=== PATIENT | female | born 1985 | race Caucasian/White ===

== ENCOUNTER 2018-10-11 04:54 | Inpatient (IN) ==
[2018-10-11] MEDS ORDERED: SODIUM CHLORIDE 0.9% INJ SCH (05:45)
[2018-10-11] MEDS ORDERED: PITOCIN 30 UNITS/NS 30 UNIT/500 ML IV.SOLN IV SCH (05:45)
[2018-10-11] MEDS ORDERED: PEPCID PO PRN (05:45)
[2018-10-11] MEDS ORDERED: PEPCID PO ONE (05:45)
[2018-10-11] MEDS ORDERED: ZOFRAN IV PRN (05:45)
[2018-10-11] MEDS ORDERED: PEPCID IV PRN (05:45)
[2018-10-11] MEDS ORDERED: TYLENOL PO PRN (05:45)
[2018-10-11] MEDS ORDERED: REGLAN PO ONE (05:45)
[2018-10-11] MEDS ORDERED: LR 1,000 ML IV SCH (05:45)
[2018-10-11 05:50] LABS: URINE SOURCE VOIDED
[2018-10-11 06:02] LABS: BILIRUBIN URINE NEGATIVE (NEGATIVE); BLOOD URINE 2+ (NEGATIVE); CLARITY SL. CLOUDY (CLEAR); COLOR YELLOW; GLUCOSE URINE NEGATIVE (NEGATIVE); KETONE URINE NEGATIVE (NEGATIVE); LEUKOCYTES URINE TRACE (NEGATIVE); NITRITE URINE NEGATIVE (NEGATIVE); PH URINE 6.5; PROTEIN URINE 1+(30 mg/dL) mg/dL (NEGATIVE); UROBILINOGEN URINE NORMAL
[2018-10-11 06:25] LABS: HEMATOCRIT 33.9 % (37.0-47.0); HEMOGLOBIN 11.2 g/dL (12.0-16.0); RBC 4.13 XMIL (4.2-5.4); WBC 10.81 X1000 (4.8-10.8)
[2018-10-11 06:26] LABS: BASO# 0.01 X1000 (0.0-0.2); BASO% 0.1 % (0.0-0.8); EOS# 0.11 X1000 (0.0-0.7); IMM GRAN# 0.03 X1000 (0.0-0.04); IMM GRAN% 0.3 % (0.0-0.5); LYMPH# 2.17 X1000 (1.2-3.4); LYMPH% 20.1 % (20.5-51.1); MCH 27.1 PG (27-31); MCV 82.1 FL (81-99); MONO# 0.63 X1000 (0.11-0.59); MONO% 5.8 % (1.7-9.3); MPV 10.6 FL (7.4-10.4); NEUT# 7.86 X1000 (1.4-6.5); NEUT% 72.7 % (42.2-75.2); PLT 198 X1000 (130-400); RDW 14.9 % (11.5-14.5)
[2018-10-11] MEDS: STADOL IV PRN ×2 (06:36→09:12)
[2018-10-11 06:38] LABS: UR AMPHETAMINES QUAL NONE DETECTED (NONE DETECT); UR BARBITUATES QUAL NONE DETECTED (NONE DETECT); UR BENZODIAZEPIN QUAL NONE DETECTED (NONE DETECT); UR CANNABINOIDS QUAL NONE DETECTED (NONE DETECT); UR COCAINE QUAL NONE DETECTED (NONE DETECT); UR METHADONE QUAL NONE DETECTED (NONE DETECT); UR METHAMPHETAMINE QUAL NONE DETECTED (NONE DETECT); UR OPIATES QUAL NONE DETECTED (NONE DETECT); UR OXYCODONE QUAL NONE DETECTED (NONE DETECT); UR PCP QUAL NONE DETECTED (NONE DETECT); UR PROPOXYPHENE QUAL NONE DETECTED (NONE DETECT); UR TCA QUAL NONE DETECTED (NONE DETECT)
[2018-10-11] MEDS ORDERED: MINERAL OIL TOP PRN (07:46)
[2018-10-11] MEDS ORDERED: XYLOCAINE-MPF 1% INJ PRN (07:47)
[2018-10-11] MEDS ORDERED: NAROPIN 0.2% INJ ONE (10:00)
[2018-10-11] MEDS ORDERED: FENTANYL-BUPIV-NS 2 MCG-0.1% 200 ML EPIDURAL SCH (10:00)
--- NOTE | 2018-10-11 10:30 | HISTORY AND PHYSICAL ---
HISTORY OF PRESENT ILLNESS: The patient is a 32-year-old G4, P3-0-0-3 at 39 weeks and 5 days based on a last menstrual period of 01/06/2018, with the LOUISE of 10/13/2018 confirmed with 16 week ultrasound. The patient presents with complaining of leakage of fluid, reports good movement, denied contractions or vaginal bleeding. PAST MEDICAL HISTORY: None. MEDICATIONS: vitamins. Tylenol. PAST SURGICAL HISTORY: Tonsillectomy. 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 Denies STD exposure. OB HISTORY: 3 full-term vaginal deliveries. FAMILY HISTORY: Mother with diabetes. Brother with hypertension. Father with hypertension. ALLERGIES: Rocephin and levofloxacin, reaction hives. SOCIAL HISTORY: Denies tobacco, alcohol, or drug use. PHYSICAL EXAMINATION: VITAL SIGNS: Temperature 97 degrees, pulse rate 86, respiratory rate 18, blood pressure 109/67, O2 sats 97% on room air. Weight 214 pounds, 97 kg, height 5 feet 3 inches tall. GENERAL: No acute distress. CARDIOVASCULAR: Regular rate and rhythm. Positive S1, S2. RESPIRATORY: Clear to auscultation bilaterally. ABDOMINAL: Gravid, nontender to palpation. EXTREMITIES: 1+ edema. No calf tenderness. PELVIC: Sterile speculum exam positive ROM Plus grossly ruptured. Sterile vaginal exam 3 cm dilated, 80% effaced, -2 station. Electronic monitoring baseline 135 beats per minute, moderate variability, positive accelerations, negative decelerations. [place] irregular contractions. LABS: WBCs 10.81, hemoglobin 11.2, hematocrit 33.9, platelets 198,000. RPR nonreactive. Group B strep negative. ASSESSMENT: Mrs. Gregorio is a 33-year-old, G4, P3-0-0-3 at 39 weeks and 5 days who presents to Labor and Delivery with spontaneous rupture of membrane in early labor. PLAN: 1. Admit to Labor and Delivery for potential augmentation of labor. 2. Augmentation with Pitocin. 3. Pain management with IV pain med or epidural based on patient preference. 4. Estimated weight 7 pounds 8 ounces. 5. Anticipate vaginal delivery. 6. Continue with monitoring. cc: Tae Valentino III, MD
[2018-10-11] MEDS ORDERED: BOOSTRIX VACCINE IM ONE (10:41)
[2018-10-11] MEDS ORDERED: PERI MEDS (DERMOPLAST/NUPERCAINAL/TUCKS) MISC PRN (10:41)
[2018-10-11] MEDS ORDERED: CYTOTEC PO PRN (10:41)
[2018-10-11] MEDS ORDERED: MINERAL OIL PO PRN (10:41)
[2018-10-11] MEDS ORDERED: M-M-R II VACCINE SUBQ ONE (10:41)
[2018-10-11] MEDS ORDERED: PITOCIN IM PRN (10:41)
[2018-10-11] MEDS ORDERED: BENADRYL PO PRN (10:41)
[2018-10-11] MEDS ORDERED: PITOCIN 20 UNITS/NS 20 UNITS/1,000 ML IV.SOLN IV SCH (10:45)
[2018-10-11] MEDS: PITOCIN 30 UNITS/NS 30 UNIT/500 ML IV.SOLN IV SCH ×2 (10:52→15:01)
[2018-10-11] MEDS: MOTRIN PO PRN (11:35)
--- NOTE | 2018-10-11 13:26 | OPERATIVE NOTE ---
PROCEDURE DATE: 10/11/2018 PREOPERATIVE DIAGNOSIS: A 33-year-old, G4, P3-0-0-3 at 39 weeks and 5 days. POSTOPERATIVE DIAGNOSIS: A 33-year-old, G4, P4-0-0-4, status post spontaneous vaginal delivery. DATE OF DELIVERY: 10/11/2018 at 0943. PROCEDURE: The patient progressed to complete cervical dilation without epidural present and had a spontaneous vaginal delivery of a live female , Apgars 9 and 10 at 1 and 5 minutes respectively. Weight 7 pounds 6 ounces. Head delivered first in OA position followed by anterior and posterior shoulders, no shoulder dystocia or nuchal cord present, followed by the rest of the body. was placed on maternal abdomen. Delayed umbilical cord clamping was done. Umbilical cord was then clamped and cut. Umbilical cord blood was collected. Placenta was then delivered grossly intact with a three-vessel cord present. Inspection of the vagina, urethra and perineum was done revealing no lacerations. Fundus firm. ESTIMATED BLOOD LOSS: Approximately 250 mL. The patient tolerated delivery well. COUNTS: Sponge and needle count correct x2. cc: Tae Valentino III, MD
[2018-10-11] MEDS: NORCO-5 PO PRN (17:49)
[2018-10-12 07:35] LABS: HEMATOCRIT 31.3 % (37.0-47.0); MCH 26.7 PG (27-31); MCHC 31.9 g/dL (33-37); MCV 83.5 FL (81-99); MPV 10.2 FL (7.4-10.4); RBC 3.75 XMIL (4.2-5.4); RDW 15.1 % (11.5-14.5); WBC 8.76 X1000 (4.8-10.8)
[2018-10-12] MEDS: MOTRIN PO PRN ×2 (07:42→16:24)
[2018-10-12] MEDS: NORCO-5 PO PRN ×2 (07:43→21:00)
[2018-10-12] MEDS: PRECARE PO SCH (08:55)
[2018-10-12] MEDS: FERROUS SULFATE PO SCH (16:27)
[2018-10-12] MEDS: PERICOLACE PO SCH ×2 (21:00→21:49)
[2018-10-13] MEDS: NORCO-5 PO PRN (02:34)
[2018-10-13] MEDS: MOTRIN PO PRN (02:34)
[2018-10-13 07:57] VITALS: BP 119/61
[2018-10-13] MEDS: PRECARE PO SCH (08:17)
[2018-10-13] MEDS: FERROUS SULFATE PO SCH (08:17)
--- NOTE | 2018-10-13 09:54 | OB/GYN PROGRESS NOTE ---
Progress Note OB - . Patient Problems: Current Active Problems Problem Status Onset (spontaneous vaginal delivery) Acute OB Progress Note: Vital Signs - 24 hr 10/12/18 12:00 10/12/18 16:23 10/12/18 21:49 Temperature 96.5 F L 96.8 F L 97.7 F Pulse Rate 81 69 76 Respiratory Rate 18 18 18 Blood Pressure 129/71 122/65 105/58 O2 Sat by Pulse Oximetry 99 98 97 10/13/18 07:57 Temperature 97.2 F L Pulse Rate 73 Respiratory Rate 14 Blood Pressure 119/61 O2 Sat by Pulse Oximetry 99 S: Patient without complaints. Denied of fever, chills, N/V, SOB, or chest pain. Voiding without difficulty. Lochia decreasing; scant. Pain minimal; controlled. Breast-feeding without difficulty. Desires permanent sterilization. Consent form signed 2 weeks ago per patient. O: Gen: NAD; AAOx3 CV: RRR Pulm: CTAB; no rhonchi, wheezing or rales Abd: soft, non-tender to palpation; non-distended; active bowel sounds; fundus firm and below umbilicus Ext: no LE TTP A&P: 33yo s/p at 39w5d, 1. PPD#2- No concerns -D/C home today - precautions given and when to f/u in clinic 2. Anemia -Secondary to acute blood loss -Fe Rx; continue PNV Laboratory Tests 10/11/18 10/11/18 10/11/18 05:15 05:15 05:15 WBC RBC Hgb Hct MCV MCH MCHC RDW Std Deviation Plt Count MPV Immature Gran % (Auto) Neut % (Auto) Lymph % (Auto) [facility] % (Auto) Eos % (Auto) Baso % (Auto) Immature Gran # (Auto) Neut # (Auto) Lymph # (Auto) [facility] # (Auto) Eos # (Auto) Baso # (Auto) Urine Source VOIDED Urine Color YELLOW Urine Clarity SL. CLOUDY A Urine pH 6.5 Ur Specific [place] 1.020 Urine Protein 1+(30 mg/dL) A Urine Ketones NEGATIVE Urine Blood 2+ A Urine Nitrite NEGATIVE Urine Bilirubin NEGATIVE Urine Urobilinogen NORMAL Urine WBC TRACE A Urine Glucose NEGATIVE Membranes Rupture POSITIVE Urine Opiates Screen NONE DETECTED Ur Oxycodone Screen NONE DETECTED Urine Methadone Screen NONE DETECTED U Propoxyphene Qual NONE DETECTED Ur Barbituates Screen NONE DETECTED Ur Tricyclics Screen NONE DETECTED Ur Phencyclidine Scrn NONE DETECTED Ur Amphetamines Screen NONE DETECTED U Methamphetamines Scrn NONE DETECTED U Benzodiazepines Scrn NONE DETECTED Urine Cocaine Screen NONE DETECTED U Cannabinoids Screen NONE DETECTED RPR Blood Type Antibody Screen 10/11/18 10/11/18 10/11/18 06:10 06:10 06:10 WBC 10.81 H RBC 4.13 L Hgb 11.2 L Hct 33.9 L MCV 82.1 MCH 27.1 MCHC 33.0 RDW Std Deviation 14.9 H Plt Count 198 MPV 10.6 H Immature Gran % (Auto) 0.3 Neut % (Auto) 72.7 Lymph % (Auto) 20.1 L [facility] % (Auto) 5.8 Eos % (Auto) 1.0 Baso % (Auto) 0.1 Immature Gran # (Auto) 0.03 Neut # (Auto) 7.86 H Lymph # (Auto) 2.17 [facility] # (Auto) 0.63 H Eos # (Auto) 0.11 Baso # (Auto) 0.01 Urine Source Urine Color Urine Clarity Urine pH Ur Specific [place] Urine Protein Urine Ketones Urine Blood Urine Nitrite Urine Bilirubin Urine Urobilinogen Urine WBC Urine Glucose Membranes Rupture Urine Opiates Screen Ur Oxycodone Screen Urine Methadone Screen U Propoxyphene Qual Ur Barbituates Screen Ur Tricyclics Screen Ur Phencyclidine Scrn Ur Amphetamines Screen U Methamphetamines Scrn U Benzodiazepines Scrn Urine Cocaine Screen U Cannabinoids Screen RPR NON-REACTIVE Blood Type A POSITIVE Antibody Screen NEGATIVE 10/12/18 07:30 WBC 8.76 RBC 3.75 L Hgb 10.0 L Hct 31.3 L MCV 83.5 MCH 26.7 L MCHC 31.9 L RDW Std Deviation 15.1 H Plt Count 178 MPV 10.2 Immature Gran % (Auto) Neut % (Auto) Lymph % (Auto) [facility] % (Auto) Eos % (Auto) Baso % (Auto) Immature Gran # (Auto) Neut # (Auto) Lymph # (Auto) [facility] # (Auto) Eos # (Auto) Baso # (Auto) Urine Source Urine Color Urine Clarity Urine pH Ur Specific [place] Urine Protein Urine Ketones Urine Blood Urine Nitrite Urine Bilirubin Urine Urobilinogen Urine WBC Urine Glucose Membranes Rupture Urine Opiates Screen Ur Oxycodone Screen Urine Methadone Screen U Propoxyphene Qual Ur Barbituates Screen Ur Tricyclics Screen Ur Phencyclidine Scrn Ur Amphetamines Screen U Methamphetamines Scrn U Benzodiazepines Scrn Urine Cocaine Screen U Cannabinoids Screen RPR Blood Type Antibody Screen
--- NOTE | 2018-10-13 11:26 | DISCHARGE SUMMARY ---
ADMISSION DATE: 10/11/2018 DISCHARGE DATE: 10/13/2018 DISCHARGE DIAGNOSES: 1. A 33-year-old 4, para 4-0-0-4, status post spontaneous vaginal delivery at 39 weeks and 5 days. 2. Contraception: Desires permanent sterilization. 3. Anemia, likely secondary to acute blood loss: Continue iron and vitamins daily. HOSPITAL COURSE: This is a 33-year-old, now G4, P4-0-0-4, who was admitted at 39 weeks and 5 days due to spontaneous rupture of membranes and latent labor. The patient had an unremarkable labor course. The patient had a spontaneous vaginal delivery on 10/11/2018 of a live female , weight 7 pounds 6 ounces. course was without complications. The patient was without difficulty. The patient desires permanent sterilization for contraception. LABORATORY: Predelivery hemoglobin was 11.2, hematocrit 30.9. Postdelivery hemoglobin 10.0, hematocrit 31.3, and platelet count 178,000. DISCHARGE DIET: Regular. DISCHARGE DISPOSITION: Stable. DISCHARGE MEDICATIONS: Iron tablet 1 tablet p.o. b.i.d., Daysi-Colace 1 tablet at bedtime p.r.n., and ibuprofen 800 mg 1 tablet p.o. q.8 h. p.r.n. pain. DISCHARGE INSTRUCTIONS: Patient was instructed to follow up with Dr. Echeverria in approximately 4 weeks. precautions given and when to call the clinic. cc: Tae Valentino III, MD MTDD
== END 2018-10-13 11:05 | disposition home or self-care (01) | DRG 806 ==
LOC: P.OPLD 04:54 → P.LD 04:55
PROVIDERS: ADMIT Obstetrics & Gynecology; ATTEND Obstetrics & Gynecology
CPT/HCPCS: 80104; 80301; 80305; 81003; 84112; 85025; 85027; 86592; 86850; 86900; 86901; 90715; A9270; G0431; G0434; G0477; J0595; J2590; J7120